=== PATIENT | female | born 1990 | race Caucasian/White ===

== ENCOUNTER 2016-09-02 18:50 | Emergency (ER) | payer MEDICAID ==
[~2016-09-02] VITALS: Ht 160 cm; Wt 76.2 kg
[~2016-09-02 18:50] MED LIST: CEFADROXIL500 MG/51 PO; CEFDINIR250 MG/5 M PO; GOOD NEIGHBOR500 M2 PO; MACROBID100 M1 PO; PRENATAL1 TA1 PO
== END 2016-09-02 19:32 | disposition home or self-care (01) ==
LOC: ED 18:50
DX: F41.9 Anxiety disorder, unspecified (principal)

== ENCOUNTER → 2016-11-13 | Outpatient (CLI) | payer MEDICARE | END | disposition home or self-care (01) | LOC: US 15:30 | DX: Z30.431 Encounter for routine checking of intrauterine contraceptive device (principal); R10.2 Pelvic and perineal pain ==

== ENCOUNTER → 2017-04-07 | Outpatient (CLI) | payer MEDICARE | END | disposition home or self-care (01) | LOC: US 13:19 | DX: O46.91 Antepartum hemorrhage, unspecified, first trimester (principal); O34.81 Maternal care for other abnormalities of pelvic organs, first trimester; N83.11 Corpus luteum cyst of right ovary; Z3A.01 Less than 8 weeks gestation of pregnancy ==

== ENCOUNTER 2017-09-08 16:58 | Emergency (ER) | payer MEDICARE ==
[~2017-09-08] VITALS: Ht 160 cm; Wt 77.1 kg
[2017-09-08] MEDS ORDERED: AMOXICILLIN400 M1 PO (17:22)
== END 2017-09-08 17:40 | disposition home or self-care (01) ==
LOC: ED 16:58
DX: O99.513 Diseases of the respiratory system complicating pregnancy, third trimester (principal); J01.10 Acute frontal sinusitis, unspecified; Z3A.28 28 weeks gestation of pregnancy

== ENCOUNTER 2017-09-14 11:32 | Emergency (ER) | payer MEDICARE ==
[~2017-09-14] VITALS: Ht 160 cm; Wt 80.3 kg
[~2017-09-14 11:32] MED LIST changes: +AMOXICILLIN400 M1 PO
[2017-09-14 12:06] LABS: BASO % 0.2 % (0.0-1.0); EOS # 0.1 10*3/uL (0.0-0.4); EOS % 0.6 % (1.0-4.0); HEMATOCRIT 34.1 % (37.0-47.0); HEMOGLOBIN 11.2 g/dl (12.0-16.0); LYMPH # 1.7 10*3/uL (1.3-4.4); LYMPH % 15.7 % (27.0-41.0); MEAN CELL VOLUME 86.8 fl (81.0-99.0); MEAN CORPUSCULAR HGB 28.5 pg (27.0-31.0); MEAN CORPUSCULAR HGB CONC 32.8 g/dl (33.0-37.0); MONO # 0.4 10*3/uL (0.1-1.0); MONO % 3.5 % (3.0-9.0); NEUT # 8.8 10*3/uL (2.3-7.9); PLATELET COUNT AUTOMATED 277 10*3/uL (130-400); RED BLOOD COUNT 3.93 10*6/uL (4.10-5.10); RED CELL DISTRI WIDTH 13.1 % (0-14.5); WHITE BLOOD COUNT 11.1 10*3/uL (4.8-10.8)
[2017-09-14 12:32] LABS: ALBUMIN 2.6 gm/dl (3.1-4.5); ALKALINE PHOSPHATASE 142 U/L (45-117); BUN 9 mg/dl (7-24); CHLORIDE 107 mmol/L (98-107); CREATININE 0.66 mg/dL (0.55-1.02); LIPASE 190 U/L (73-393); POTASSIUM 4.2 mmol/L (3.5-5.1); SGOT/AST 11 IU/L (3-35); SGPT/ALT 13 U/L (12-78); SODIUM 138 mmol/L (136-145); TOTAL PROTEIN 7.2 gm/dL (6.4-8.2)
[2017-09-14 13:42] LABS: BILIRUBIN NEGATIVE (NEGATIVE); BLOOD NEGATIVE (NEGATIVE); CLARITY CLOUDY (CLEAR); COLOR YELLOW (YELLOW); GLUCOSE NEGATIVE (NEGATIVE); KETONE NEGATIVE (NEGATIVE); LEUKO ESTERASE NEGATIVE (NEGATIVE); NITRITE NEGATIVE (NEGATIVE); PH 6.5 (5.0-9.0); SPECIFIC GRAVITY <= 1.005 (1.005-1.030); UROBILINOGEN 0.2 E.U./dl (0.2-1.0)
[2017-09-14] MEDS ORDERED: DICLEGIS DR 101 EACH PO (13:47)
[2017-09-14 14:23] LABS: BACTERIA TRACE; EPITHELIAL CELLS 16-20
== END 2017-09-14 14:37 | disposition home or self-care (01) ==
LOC: ED 11:32
PROVIDERS: Nurse Practitioner Family
DX: O21.2 Late vomiting of pregnancy (principal); Z3A.29 29 weeks gestation of pregnancy

== ENCOUNTER 2017-12-08 10:35 | Emergency (ER) | payer MEDICARE, OTHER ==
[~2017-12-08] VITALS: Ht 160 cm; Wt 72.6 kg
[~2017-12-08 10:35] MED LIST changes: +DICLEGIS DR 101 EACH PO
[2017-12-08 11:10] LABS: BILIRUBIN NEGATIVE (NEGATIVE); BLOOD 3+ (NEGATIVE); CLARITY SL CLOUDY (CLEAR); COLOR YELLOW (YELLOW); GLUCOSE NEGATIVE (NEGATIVE); KETONE NEGATIVE (NEGATIVE); LEUKO ESTERASE NEGATIVE (NEGATIVE); NITRITE NEGATIVE (NEGATIVE); PH 5.5 (5.0-9.0); UROBILINOGEN 0.2 E.U./dl (0.2-1.0)
[2017-12-08 11:20] LABS: BACTERIA 1+; EPITHELIAL CELLS 30-35; RBC 51-100 rbc/hpf (0-2)
[2017-12-08] MEDS ORDERED: SEPTDS PO (11:24)
== END 2017-12-08 11:28 | disposition home or self-care (01) ==
LOC: ED 10:35
PROVIDERS: Nurse Practitioner Family
DX: O86.29 Other urinary tract infection following delivery (principal); R30.0 Dysuria; Z90.89 Acquired absence of other organs

== ENCOUNTER 2017-12-15 17:20 | Emergency (ER) | payer OTHER ==
[~2017-12-15] VITALS: Ht 160 cm; Wt 72.6 kg
[~2017-12-15 17:20] MED LIST changes: +SEPTDS PO
== END 2017-12-15 17:51 | disposition home or self-care (01) ==
LOC: ED 17:20
DX: S61.211A Laceration without foreign body of left index finger without damage to nail, initial encounter (principal); W45.8XXA Other foreign body or object entering through skin, initial encounter; Y93.89 Activity, other specified; Y92.89 Other specified places as the place of occurrence of the external cause; Y99.8 Other external cause status

== ENCOUNTER 2017-12-28 17:05 | Emergency (ER) | payer OTHER ==
[~2017-12-28] VITALS: Ht 160 cm; Wt 72.6 kg
[2017-12-28] MEDS ORDERED: CLARITIN10 MG PO (17:43)
[2017-12-28] MEDS ORDERED: PREDNISONE10 MG PO (17:43)
[2017-12-28] MEDS ORDERED: FLONASE ALLERG9.9 ML NAS (17:43)
== END 2017-12-28 18:08 | disposition home or self-care (01) ==
LOC: ED 17:05
DX: J02.9 Acute pharyngitis, unspecified (principal); Z90.89 Acquired absence of other organs

== ENCOUNTER 2018-01-23 17:02 | Emergency (ER) | payer OTHER ==
[~2018-01-23] VITALS: Ht 160 cm; Wt 72.6 kg
[~2018-01-23 17:02] MED LIST changes: +CLARITIN10 MG PO; +FLONASE ALLERG9.9 ML NAS; +PREDNISONE10 MG PO
[2018-01-23] MEDS ORDERED: PREDNISONE10 MG PO (17:14)
== END 2018-01-23 18:05 | disposition home or self-care (01) ==
LOC: ED 17:02
DX: M77.8 Other enthesopathies, not elsewhere classified (principal); F41.9 Anxiety disorder, unspecified

== ENCOUNTER 2018-02-12 13:50 | Emergency (ER) | payer OTHER ==
[~2018-02-12] VITALS: Ht 167.6 cm; Wt 81.6 kg
[2018-02-12] MEDS ORDERED: LORAZEPAM0.5 MG PO (13:54)
[2018-02-12] MEDS ORDERED: ESCITALOPRAM OX10 MG PO (13:55)
[2018-02-12 14:17] LABS: BILIRUBIN NEGATIVE (NEGATIVE); BLOOD 3+ (NEGATIVE); CLARITY CLOUDY (CLEAR); COLOR YELLOW (YELLOW); GLUCOSE NEGATIVE (NEGATIVE); KETONE NEGATIVE (NEGATIVE); LEUKO ESTERASE 2+ (NEGATIVE); NITRITE NEGATIVE (NEGATIVE); SPECIFIC GRAVITY 1.025 (1.005-1.030); UROBILINOGEN 0.2 E.U./dl (0.2-1.0)
[2018-02-12 14:26] LABS: RBC TNTC rbc/hpf (0-2)
[2018-02-12] MEDS ORDERED: PYRIDIUM100 MG PO (14:39)
[2018-02-12] MEDS ORDERED: DIFLUCAN150 MG PO (14:39)
[2018-02-12] MEDS ORDERED: MACROBID100 M1 PO (14:39)
== END 2018-02-12 14:44 | disposition home or self-care (01) ==
LOC: ED 13:50
PROVIDERS: Nurse Practitioner
DX: N39.0 Urinary tract infection, site not specified (principal); R31.9 Hematuria, unspecified; Z90.89 Acquired absence of other organs; Z79.899 Other long term (current) drug therapy

== ENCOUNTER 2018-03-10 22:43 | Emergency (ER) | payer OTHER ==
[~2018-03-10] VITALS: Ht 160 cm; Wt 77.1 kg
--- NOTE | ~2018-03-10 | EKG ---
[place], [place] ELECTROCARDIOGRAM REPORT NAME: LAQUITA MARMOLEJO UNIT #: [id number] ROOM: DOCTOR: EPIPHANY DRAFT REPORT BIRTHDATE: [birth year] [facility] Test Date: 2018-03-10 Test Time: 22:52:48 Pat Name: LAQUITA MARMOLEJO Department: ER Room: 9 Gender: F Clinical Reviewer: : 1990 Requested By: OLIMPIA BEAR Order Number: [id number] Reading MD: Shellie Gary MD Measurements Intervals [place] Rate: 80 P: 41 KS: 143 QRS: 25 QRSD: 92 T: 35 QT: 373 QTc: 431 Interpretive Statements Sinus rhythm Electronically Signed On 03-12-2018 11:08:42 PDT by Shellie Gary MD CM:EKGRPT:ELECTROCARDIOGRAM REPORT [id number] OLIMPIA BEAR MD [facility] DRAFT REPORT OLIMPIA BEAR MD
[~2018-03-10 22:43] MED LIST changes: +DIFLUCAN150 MG PO; +ESCITALOPRAM OX10 MG PO; +LORAZEPAM0.5 MG PO; +PYRIDIUM100 MG PO
[2018-03-10 23:22] LABS: BASO % 0.4 % (0.0-1.0); EOS # 0.2 10*3/uL (0.0-0.4); EOS % 2.7 % (1.0-4.0); HEMATOCRIT 35.8 % (37.0-47.0); HEMOGLOBIN 11.7 g/dl (12.0-16.0); LYMPH # 2.8 10*3/uL (1.3-4.4); LYMPH % 33.2 % (27.0-41.0); MEAN CORPUSCULAR HGB 27.8 pg (27.0-31.0); MEAN CORPUSCULAR HGB CONC 32.7 g/dl (33.0-37.0); MONO # 0.3 10*3/uL (0.1-1.0); MONO % 3.9 % (3.0-9.0); NEUT % 59.6 % (47.0-73.0); PLATELET COUNT AUTOMATED 303 10*3/uL (130-400); RED BLOOD COUNT 4.21 10*6/uL (4.10-5.10); RED CELL DISTRI WIDTH 12.6 % (0-14.5); WHITE BLOOD COUNT 8.4 10*3/uL (4.8-10.8)
[2018-03-10 23:35] LABS: ACT PARTIAL THROMBO TIME 25.2 SECONDS (20.8-31.5)
[2018-03-10 23:40] LABS: ALBUMIN 3.7 gm/dl (3.1-4.5); ALKALINE PHOSPHATASE 66 U/L (45-117); BUN 16 mg/dl (7-24); CHLORIDE 109 mmol/L (98-107); CREATININE 0.75 mg/dL (0.55-1.02); POTASSIUM 3.6 mmol/L (3.5-5.1); SGOT/AST 13 IU/L (3-35); SGPT/ALT 27 U/L (12-78); SODIUM 143 mmol/L (136-145); TOTAL PROTEIN 7.3 gm/dL (6.4-8.2)
[2018-03-10 23:42] LABS: TROPONIN I < 0.015 ng/ml (<0.045)
[2018-03-10] MEDS ORDERED: ATIVAN0.5 MG PO (23:49)
[2018-03-10] MEDS ORDERED: ESCITALOPRAM OX20 MG PO (23:49)
== END 2018-03-11 00:25 | disposition home or self-care (01) ==
LOC: ED 22:43
PROVIDERS: Emergency Medicine Emergency Medical Services
DX: R07.89 Other chest pain (principal); F41.1 Generalized anxiety disorder; F43.0 Acute stress reaction; Z79.899 Other long term (current) drug therapy

== ENCOUNTER 2018-09-15 09:18 | Emergency (ER) | payer MEDICARE, OTHER ==
[~2018-09-15] VITALS: Ht 160 cm; Wt 86.2 kg
[~2018-09-15 09:18] MED LIST changes: +ATIVAN0.5 MG PO; +ESCITALOPRAM OX20 MG PO; +LEXAPRO20 MG PO; +PROAIR HFA8.5 GM INH
[2018-09-15] MEDS ORDERED: ZYRTEC10 MG PO (10:03)
[2018-09-15] MEDS ORDERED: FLONASE ALLERG9.9 ML NAS (10:03)
[2018-09-15] MEDS ORDERED: ZITHROMAX250 MG PO (10:03)
== END 2018-09-15 10:23 | disposition home or self-care (01) ==
LOC: ED 09:18
DX: J01.90 Acute sinusitis, unspecified (principal); Z79.899 Other long term (current) drug therapy

== ENCOUNTER → 2019-01-20 | Outpatient (CLI) | payer MEDICARE ==
[~2019-01-20] MED LIST changes: +AUGMENTIN 875875 MG PO; +BUDEPRION XL150 MG PO; +CEPHALEXIN500 M1 PO; +GOOD NEIGHBOR150 MG PO; +PHENERGAN25 M3 PO; +ZITHROMAX250 MG PO; +ZOFRAN4 MG PO; +ZYRTEC10 MG PO
[2019-01-20 11:49] LABS: BASO % 0.5 % (0.0-1.0); EOS # 0.2 10*3/uL (0.0-0.4); EOS % 2.1 % (1.0-4.0); HEMATOCRIT 40.5 % (37.0-47.0); HEMOGLOBIN 13.5 g/dl (12.0-16.0); LYMPH # 2.8 10*3/uL (1.3-4.4); MEAN CELL VOLUME 86.9 fl (81.0-99.0); MEAN CORPUSCULAR HGB CONC 33.3 g/dl (33.0-37.0); MEAN PLATELET VOLUME 10.1 fl (9.6-12.3); MONO # 0.3 10*3/uL (0.1-1.0); MONO % 4.4 % (3.0-9.0); NEUT # 4.4 10*3/uL (2.3-7.9); NEUT % 56.7 % (47.0-73.0); PLATELET COUNT AUTOMATED 286 10*3/uL (130-400); RED BLOOD COUNT 4.66 10*6/uL (4.10-5.10); RED CELL DISTRI WIDTH 12.6 % (0-14.5); WHITE BLOOD COUNT 7.8 10*3/uL (4.8-10.8)
[2019-01-20 12:07] LABS: ALBUMIN 3.7 gm/dl (3.1-4.5); ALKALINE PHOSPHATASE 65 U/L (45-117); BUN 14 mg/dl (7-24); CHLORIDE 107 mmol/L (98-107); CHOLESTEROL 122 mg/dL (<200); CREATININE 0.68 mg/dL (0.55-1.02); HDL CHOLESTEROL 39 mg/dl (40-60); LDL CHOLESTEROL 67 mg/dL (9-159); POTASSIUM 3.9 mmol/L (3.5-5.1); SGOT/AST 39 IU/L (3-35); SGPT/ALT 92 U/L (12-78); SODIUM 140 mmol/L (136-145); TOTAL PROTEIN 7.6 gm/dL (6.4-8.2); TRIGLYCERIDES 80 mg/dl (<150); VLDL CHOLESTEROL 16 mg/dL (6-40)
== END | disposition home or self-care (01) ==
LOC: LAB 11:16
PROVIDERS: Registered Nurse Psychiatric/Mental Health
DX: F33.9 Major depressive disorder, recurrent, unspecified (principal); E55.9 Vitamin D deficiency, unspecified; E66.9 Obesity, unspecified

== ENCOUNTER 2019-02-09 20:50 | Emergency (ER) | payer MEDICARE ==
[~2019-02-09] VITALS: Ht 160 cm; Wt 90.7 kg
[~2019-02-09 20:50] MED LIST changes: -BUDEPRION XL150 MG PO; -GOOD NEIGHBOR150 MG PO; -PHENERGAN25 M3 PO; -ZOFRAN4 MG PO
== END 2019-02-09 23:30 | disposition home or self-care (01) ==
LOC: ED 20:50
DX: M79.671 Pain in right foot (principal)

== ENCOUNTER 2019-02-26 08:55 | Emergency (ER) | payer MEDICARE ==
[~2019-02-26] VITALS: Wt 91.2 kg
[2019-02-26] MEDS ORDERED: ZOFRAN4 MG PO (10:40)
== END 2019-02-26 10:53 | disposition home or self-care (01) ==
LOC: ED 08:55
DX: K52.9 Noninfective gastroenteritis and colitis, unspecified (principal)

== ENCOUNTER 2019-03-05 16:14 | Emergency (ER) | payer MEDICARE ==
[~2019-03-05] VITALS: Ht 160 cm; Wt 93.0 kg
[~2019-03-05 16:14] MED LIST changes: +ZOFRAN4 MG PO
== END 2019-03-05 18:07 | disposition home or self-care (01) ==
LOC: ED 16:14
DX: S80.02XA Contusion of left knee, initial encounter (principal); S80.01XA Contusion of right knee, initial encounter; W18.09XA Striking against other object with subsequent fall, initial encounter; Y93.01 Activity, walking, marching and hiking; Y92.89 Other specified places as the place of occurrence of the external cause; Y99.8 Other external cause status

== ENCOUNTER → 2019-03-26 | Outpatient (CLI) | payer MEDICARE ==
[~2019-03-26] MED LIST changes: +BUDEPRION XL150 MG PO; +GOOD NEIGHBOR150 MG PO; +PHENERGAN25 M3 PO
== END | disposition home or self-care (01) ==
LOC: US 09:58
DX: R94.5 Abnormal results of liver function studies (principal)

== ENCOUNTER 2019-03-30 13:21 | Emergency (ER) | payer MEDICARE ==
[~2019-03-30] VITALS: Ht 160 cm; Wt 90.3 kg
--- NOTE | ~2019-03-30 | EKG ---
[place], [place] ELECTROCARDIOGRAM REPORT NAME: LAQUITA MARMOLEJO UNIT #: [id number] ROOM: DOCTOR: EPIPHANY DRAFT REPORT BIRTHDATE: [birth year] [facility] Test Date: 2019-03-30 Test Time: 13:53:39 Pat Name: LAQUITA MARMOLEJO Department: Room: Gender: F Compounder: Olive Parker : 1990 Requested By: FELIPE MADRID Order Number: [id number] Reading MD: Melodie Arellano MD Measurements Intervals [place] Rate: 97 P: 29 VT: 135 QRS: 21 QRSD: 83 T: 28 QT: 333 QTc: 423 Interpretive Statements Sinus rhythm Baseline wander in lead(s) V4 Compared to ECG 03/10/2018 22:52:48 No significant changes Electronically Signed On 03-30-2019 14:49:51 PDT by Melodie Arellano MD CM:EKGRPT:ELECTROCARDIOGRAM REPORT [id number] FELIPE JACKSON DRAFT REPORT FELIPE MADRID DO
[~2019-03-30 13:21] MED LIST changes: -BUDEPRION XL150 MG PO; -GOOD NEIGHBOR150 MG PO; -PHENERGAN25 M3 PO
[2019-03-30] MEDS ORDERED: BUDEPRION XL150 MG PO (13:23)
[2019-03-30] MEDS ORDERED: GOOD NEIGHBOR150 MG PO (13:23)
[2019-03-30 13:53] LABS: BASO % 0.3 % (0.0-1.0); EOS # 0.2 10*3/uL (0.0-0.4); EOS % 2.2 % (1.0-4.0); LYMPH # 1.2 10*3/uL (1.3-4.4); LYMPH % 13.6 % (27.0-41.0); MEAN CELL VOLUME 86.8 fl (81.0-99.0); MEAN CORPUSCULAR HGB 28.9 pg (27.0-31.0); MEAN CORPUSCULAR HGB CONC 33.3 g/dl (33.0-37.0); MEAN PLATELET VOLUME 9.8 fl (9.6-12.3); MONO # 0.3 10*3/uL (0.1-1.0); MONO % 3.3 % (3.0-9.0); NEUT # 7.1 10*3/uL (2.3-7.9); NEUT % 80.3 % (47.0-73.0); PLATELET COUNT AUTOMATED 277 10*3/uL (130-400); RED BLOOD COUNT 4.84 10*6/uL (4.10-5.10); RED CELL DISTRI WIDTH 12.3 % (0-14.5); WHITE BLOOD COUNT 8.9 10*3/uL (4.8-10.8)
[2019-03-30 14:06] LABS: BILIRUBIN NEGATIVE (NEGATIVE); BLOOD 3+ (NEGATIVE); CLARITY SL CLOUDY (CLEAR); COLOR YELLOW (YELLOW); GLUCOSE NEGATIVE (NEGATIVE); KETONE NEGATIVE (NEGATIVE); LEUKO ESTERASE NEGATIVE (NEGATIVE); NITRITE NEGATIVE (NEGATIVE); SPECIFIC GRAVITY 1.025 (1.005-1.030); UROBILINOGEN 0.2 E.U./dl (0.2-1.0)
[2019-03-30 14:14] LABS: ALBUMIN 3.8 gm/dl (3.1-4.5); ALKALINE PHOSPHATASE 77 U/L (45-117); BUN 10 mg/dl (7-24); CHLORIDE 108 mmol/L (98-107); CREATININE 0.72 mg/dL (0.55-1.02); LIPASE 165 U/L (73-393); POTASSIUM 3.8 mmol/L (3.5-5.1); SGOT/AST 28 IU/L (3-35); SGPT/ALT 71 U/L (12-78); SODIUM 137 mmol/L (136-145); TOTAL PROTEIN 7.9 gm/dL (6.4-8.2)
[2019-03-30 14:15] LABS: BETA-HCG, QUANT < 1.0 mIU/mL (1-3)
[2019-03-30 14:20] LABS: EPITHELIAL CELLS 21-30
[2019-03-30 14:21] LABS: BACTERIA 3+
[2019-03-30] MEDS ORDERED: PHENERGAN25 M3 PO (18:24)
== END 2019-03-30 18:34 | disposition home or self-care (01) ==
LOC: ED 13:21
PROVIDERS: Emergency Medicine
DX: K52.9 Noninfective gastroenteritis and colitis, unspecified (principal); R30.9 Painful micturition, unspecified; R42 Dizziness and giddiness; Z79.899 Other long term (current) drug therapy

== ENCOUNTER 2019-05-06 20:00 | Emergency (ER) | payer MEDICARE ==
[~2019-05-06] VITALS: Ht 160 cm; Wt 89.8 kg
[~2019-05-06 20:00] MED LIST changes: +BUDEPRION XL150 MG PO; +GOOD NEIGHBOR150 MG PO; +PHENERGAN25 M3 PO
[2019-05-06 20:42] LABS: BASO % 0.4 % (0.0-1.0); EOS # 0.2 10*3/uL (0.0-0.4); EOS % 1.9 % (1.0-4.0); HEMATOCRIT 37.5 % (37.0-47.0); HEMOGLOBIN 12.6 g/dl (12.0-16.0); LYMPH # 2.8 10*3/uL (1.3-4.4); LYMPH % 24.8 % (27.0-41.0); MEAN CELL VOLUME 87.2 fl (81.0-99.0); MEAN CORPUSCULAR HGB 29.3 pg (27.0-31.0); MEAN CORPUSCULAR HGB CONC 33.6 g/dl (33.0-37.0); MEAN PLATELET VOLUME 9.8 fl (9.6-12.3); MONO # 0.4 10*3/uL (0.1-1.0); MONO % 3.9 % (3.0-9.0); NEUT # 7.6 10*3/uL (2.3-7.9); NEUT % 68.7 % (47.0-73.0); PLATELET COUNT AUTOMATED 303 10*3/uL (130-400); RED CELL DISTRI WIDTH 12.3 % (0-14.5); WHITE BLOOD COUNT 11.1 10*3/uL (4.8-10.8)
[2019-05-06 21:00] LABS: BUN 13 mg/dl (7-24); CHLORIDE 105 mmol/L (98-107); CREATININE 0.78 mg/dL (0.55-1.02); POTASSIUM 3.6 mmol/L (3.5-5.1); SODIUM 141 mmol/L (136-145)
[2019-05-06] MEDS ORDERED: Accuneb 0.1.25 MG/3 INH (21:32)
[2019-05-06] MEDS ORDERED: TYLENOL325 M1 PO (21:32)
[2019-05-06] MEDS ORDERED: ZITHROMAX250 MG PO (21:32)
== END 2019-05-06 21:35 | disposition home or self-care (01) ==
LOC: ED 20:00
PROVIDERS: Emergency Medicine Emergency Medical Services
DX: J02.0 Streptococcal pharyngitis (principal); M25.561 Pain in right knee; Z79.899 Other long term (current) drug therapy; W19.XXXA Unspecified fall, initial encounter; Y93.89 Activity, other specified; Y92.89 Other specified places as the place of occurrence of the external cause; Y99.8 Other external cause status

== ENCOUNTER 2019-05-20 20:34 | Emergency (ER) | payer MEDICARE ==
[~2019-05-20] VITALS: Ht 160 cm; Wt 89.8 kg
== END 2019-05-20 22:00 | disposition home or self-care (01) ==
LOC: ED 20:34
DX: S80.02XA Contusion of left knee, initial encounter (principal); S80.01XA Contusion of right knee, initial encounter; Z79.899 Other long term (current) drug therapy; W18.39XA Other fall on same level, initial encounter; Y93.89 Activity, other specified; Y92.89 Other specified places as the place of occurrence of the external cause; Y99.8 Other external cause status

== ENCOUNTER → 2019-05-20 | Outpatient (CLI) | payer MEDICARE ==
[~2019-05-20] MED LIST changes: +Accuneb 0.1.25 MG/3 INH; +TYLENOL325 M1 PO
== END | disposition home or self-care (01) ==
LOC: ORTHO 02:46
DX: M25.562 Pain in left knee (principal); M25.561 Pain in right knee; Z91.81 History of falling

== ENCOUNTER 2019-06-01 08:42 | Emergency (ER) | payer MEDICARE ==
[~2019-06-01] VITALS: Ht 160 cm; Wt 89.8 kg
[2019-06-01] MEDS ORDERED: ZITHROMAX250 MG PO (09:21)
== END 2019-06-01 09:46 | disposition home or self-care (01) ==
LOC: ED 08:42
DX: J40 Bronchitis, not specified as acute or chronic (principal); Z79.2 Long term (current) use of antibiotics; Z79.899 Other long term (current) drug therapy

== ENCOUNTER → 2019-06-20 | Outpatient (CLI) | payer MEDICARE | END | disposition home or self-care (01) | LOC: MRI 06-08 14:00 | DX: M17.11 Unilateral primary osteoarthritis, right knee (principal); M25.461 Effusion, right knee; M25.562 Pain in left knee ==

== ENCOUNTER → 2019-09-19 | Outpatient (CLI) | payer MEDICARE ==
[~2019-09-19] MED LIST changes: +AMOXICILLI400 MG/51 PO; +AMOXICILLIN500 M2 PO
[2019-09-19 09:45] LABS: BASO % 0.5 % (0.0-1.0); EOS # 0.2 10*3/uL (0.0-0.4); EOS % 2.5 % (1.0-4.0); HEMOGLOBIN 13.1 g/dl (12.0-16.0); LYMPH # 2.6 10*3/uL (1.3-4.4); LYMPH % 34.8 % (27.0-41.0); MEAN CORPUSCULAR HGB 28.2 pg (27.0-31.0); MEAN CORPUSCULAR HGB CONC 32.8 g/dl (33.0-37.0); MEAN PLATELET VOLUME 9.8 fl (9.6-12.3); MONO # 0.3 10*3/uL (0.1-1.0); MONO % 4.1 % (3.0-9.0); NEUT # 4.3 10*3/uL (2.3-7.9); NEUT % 57.8 % (47.0-73.0); PLATELET COUNT AUTOMATED 309 10*3/uL (130-400); RED BLOOD COUNT 4.65 10*6/uL (4.10-5.10); RED CELL DISTRI WIDTH 12.3 % (0-14.5); WHITE BLOOD COUNT 7.5 10*3/uL (4.8-10.8)
[2019-09-19 10:15] LABS: CHLORIDE 109 mmol/L (98-107); POTASSIUM 4.2 mmol/L (3.5-5.1); SODIUM 139 mmol/L (136-145)
[2019-09-19 10:30] LABS: ALBUMIN 3.9 gm/dl (3.1-4.5); ALKALINE PHOSPHATASE 69 U/L (45-117); BUN 13 mg/dl (7-24); CHOLESTEROL 135 mg/dL (<200); CREATININE 0.68 mg/dL (0.55-1.02); HDL CHOLESTEROL 35 mg/dl (40-60); LDL CHOLESTEROL 80 mg/dL (9-159); SGOT/AST 32 IU/L (3-35); SGPT/ALT 73 U/L (12-78); TOTAL PROTEIN 7.5 gm/dL (6.4-8.2); TRIGLYCERIDES 99 mg/dl (<150); VLDL CHOLESTEROL 20 mg/dL (6-40)
== END ==
LOC: LAB 09:07
PROVIDERS: Nurse Practitioner Family
DX: K76.0 Fatty (change of) liver, not elsewhere classified (principal); E55.9 Vitamin D deficiency, unspecified; E66.9 Obesity, unspecified; R94.5 Abnormal results of liver function studies; R53.83 Other fatigue

== ENCOUNTER 2019-10-02 22:42 | Emergency (ER) | payer MEDICARE ==
[~2019-10-02] VITALS: Ht 160 cm; Wt 89.8 kg
[~2019-10-02 22:42] MED LIST changes: -AMOXICILLI400 MG/51 PO; -AMOXICILLIN500 M2 PO
[2019-10-02] MEDS ORDERED: AMOXICILLIN500 M2 PO (23:56)
[2019-10-03] MEDS ORDERED: AMOXICILLI400 MG/51 PO (00:16)
== END 2019-10-03 04:32 | disposition home or self-care (01) ==
LOC: ED 22:42
DX: J02.9 Acute pharyngitis, unspecified (principal); R11.0 Nausea; R51 Headache; Z79.2 Long term (current) use of antibiotics; Z79.899 Other long term (current) drug therapy

== ENCOUNTER 2019-10-25 23:43 | Emergency (ER) | payer OTHER ==
[~2019-10-25] VITALS: Ht 160 cm; Wt 93.0 kg
[~2019-10-25 23:43] MED LIST changes: +AMOXICILLI400 MG/51 PO; +AMOXICILLIN500 M2 PO
== END 2019-10-26 00:46 | disposition home or self-care (01) ==
LOC: ED 23:43
DX: B34.9 Viral infection, unspecified (principal); Z79.899 Other long term (current) drug therapy

== ENCOUNTER 2019-10-28 11:18 | Emergency (ER) | payer OTHER ==
[2019-10-28 11:48] LABS: BASO % 0.3 % (0.0-1.0); EOS # 0.3 10*3/uL (0.0-0.4); EOS % 3.3 % (1.0-4.0); HEMATOCRIT 39.8 % (37.0-47.0); HEMOGLOBIN 13.2 g/dl (12.0-16.0); LYMPH # 2.4 10*3/uL (1.3-4.4); LYMPH % 25.3 % (27.0-41.0); MEAN CELL VOLUME 85.4 fl (81.0-99.0); MEAN CORPUSCULAR HGB 28.3 pg (27.0-31.0); MEAN CORPUSCULAR HGB CONC 33.2 g/dl (33.0-37.0); MEAN PLATELET VOLUME 9.4 fl (9.6-12.3); MONO # 0.5 10*3/uL (0.1-1.0); NEUT # 6.1 10*3/uL (2.3-7.9); NEUT % 65.9 % (47.0-73.0); PLATELET COUNT AUTOMATED 329 10*3/uL (130-400); RED BLOOD COUNT 4.66 10*6/uL (4.10-5.10); RED CELL DISTRI WIDTH 12.4 % (0-14.5); WHITE BLOOD COUNT 9.3 10*3/uL (4.8-10.8)
[2019-10-28 12:04] LABS: ALBUMIN 3.8 gm/dl (3.1-4.5); ALKALINE PHOSPHATASE 77 U/L (45-117); BUN 12 mg/dl (7-24); CHLORIDE 110 mmol/L (98-107); CREATININE 0.58 mg/dL (0.55-1.02); POTASSIUM 3.7 mmol/L (3.5-5.1); SGOT/AST 28 IU/L (3-35); SGPT/ALT 63 U/L (12-78); SODIUM 140 mmol/L (136-145); TOTAL PROTEIN 7.8 gm/dL (6.4-8.2)
[2019-10-28] MEDS ORDERED: FLONASE ALLERG9.9 ML NAS (12:58)
[2019-10-28] MEDS ORDERED: CLARITIN10 MG PO (12:58)
[2019-10-28] MEDS ORDERED: ROBITUSSIN DM 101 OZ PO (12:58)
== END 2019-10-28 13:00 | disposition home or self-care (01) ==
LOC: ED 11:18
PROVIDERS: Nurse Practitioner Family
DX: J06.9 Acute upper respiratory infection, unspecified (principal); F41.9 Anxiety disorder, unspecified; F32.9 Major depressive disorder, single episode, unspecified; Z79.2 Long term (current) use of antibiotics; Z79.899 Other long term (current) drug therapy

== ENCOUNTER → 2020-01-18 | Outpatient (CLI) | payer OTHER ==
[~2020-01-18] MED LIST changes: +ROBITUSSIN DM 101 OZ PO
== END | disposition home or self-care (01) ==
LOC: RAD 13:21
DX: M99.03 Segmental and somatic dysfunction of lumbar region (principal)

== ENCOUNTER 2020-02-23 11:47 | Emergency (ER) | payer OTHER ==
[~2020-02-23] VITALS: Ht 160 cm; Wt 94.3 kg
[2020-02-23 12:50] LABS: BILIRUBIN NEGATIVE (NEGATIVE); BLOOD NEGATIVE (NEGATIVE); CLARITY SL CLOUDY (CLEAR); COLOR YELLOW (YELLOW); GLUCOSE NEGATIVE (NEGATIVE); KETONE NEGATIVE (NEGATIVE); LEUKO ESTERASE 1+ (NEGATIVE); NITRITE NEGATIVE (NEGATIVE); SPECIFIC GRAVITY 1.025 (1.005-1.030); UROBILINOGEN 0.2 E.U./dl (0.2-1.0)
[2020-02-23 13:00] LABS: BACTERIA 3+; EPITHELIAL CELLS 16-20; MUCOUS 1+
== END 2020-02-23 13:16 | disposition home or self-care (01) ==
LOC: ED 11:47
PROVIDERS: Student in an Organized Health Care Education/Training Program
DX: R11.0 Nausea (principal); Z32.02 Encounter for pregnancy test, result negative; Z79.899 Other long term (current) drug therapy

== ENCOUNTER → 2020-03-02 | Outpatient (CLI) | payer OTHER | END | disposition home or self-care (01) | LOC: US 13:30 | DX: N91.1 Secondary amenorrhea (principal) ==

== ENCOUNTER 2020-05-29 18:25 | Emergency (ER) | payer OTHER ==
[~2020-05-29] VITALS: Wt 85.3 kg
[2020-05-29 19:13] LABS: BILIRUBIN Negative (Negative); BLOOD Negative (Negative); CLARITY Cloudy (Clear); COLOR Yellow (Yellow); GLUCOSE Negative (Negative); KETONE Negative (Negative); LEUKO ESTERASE Trace (Negative); NITRITE Negative (Negative); PH 6.5 (4.5-8.0); SPECIFIC GRAVITY 1.025 (1.001-1.030)
[2020-05-29 19:27] LABS: BACTERIA 1+
[2020-05-29] MEDS ORDERED: Bactrim 200 MG/30 ML PO (19:31)
== END 2020-05-29 19:41 | disposition home or self-care (01) ==
LOC: ED 18:25
PROVIDERS: Emergency Medicine
DX: N39.0 Urinary tract infection, site not specified (principal); F41.9 Anxiety disorder, unspecified; F32.9 Major depressive disorder, single episode, unspecified; Z79.899 Other long term (current) drug therapy

== ENCOUNTER → 2020-07-10 | Outpatient (CLI) | payer OTHER ==
[~2020-07-10] MED LIST changes: +ASPIRIN ADULT L81 M1 PO; +Bactrim 200 MG/30 ML PO; +Lovenox40 MG/0.4 PO; +VITAMIN B-625 M1 PO
== END | disposition home or self-care (01) ==
LOC: US 11:34
PROVIDERS: ATTEND Nurse Practitioner Women's Health
DX: Z34.81 Encounter for supervision of other normal pregnancy, first trimester (principal); Z3A.01 Less than 8 weeks gestation of pregnancy

== ENCOUNTER → 2020-07-20 | Outpatient (CLI) | payer OTHER | END | disposition home or self-care (01) | LOC: US 14:48 | PROVIDERS: ATTEND Nurse Practitioner Women's Health | DX: Z34.81 Encounter for supervision of other normal pregnancy, first trimester (principal); Z3A.01 Less than 8 weeks gestation of pregnancy ==

== ENCOUNTER → 2020-07-27 | Outpatient (CLI) | payer OTHER | END | disposition home or self-care (01) | LOC: US 12:00 | PROVIDERS: ATTEND Nurse Practitioner Women's Health | DX: O34.81 Maternal care for other abnormalities of pelvic organs, first trimester (principal); N83.11 Corpus luteum cyst of right ovary; Z3A.01 Less than 8 weeks gestation of pregnancy ==

== ENCOUNTER 2020-09-04 09:28 | Emergency (ER) | payer OTHER ==
[~2020-09-04] VITALS: Ht 160 cm; Wt 83.9 kg
[~2020-09-04 09:28] MED LIST changes: -ASPIRIN ADULT L81 M1 PO; -Lovenox40 MG/0.4 PO; -VITAMIN B-625 M1 PO
[2020-09-04] MEDS ORDERED: ASPIRIN ADULT L81 M1 PO (09:33)
[2020-09-04] MEDS ORDERED: Lovenox40 MG/0.4 PO (09:34)
[2020-09-04] MEDS ORDERED: VITAMIN B-625 M1 PO (09:35)
[2020-09-04 10:19] LABS: BILIRUBIN Negative (Negative); BLOOD 2+ (Negative); CLARITY Cloudy (Clear); COLOR Yellow (Yellow); GLUCOSE Negative (Negative); KETONE Negative (Negative); LEUKO ESTERASE 2+ (Negative); NITRITE Negative (Negative); PH 5.5 (4.5-8.0); SPECIFIC GRAVITY 1.025 (1.001-1.030)
[2020-09-04 10:35] LABS: EPITHELIAL CELLS 16-20; MUCOUS TRACE; RBC 0-2 rbc/hpf (0-2)
[2020-09-04] MEDS ORDERED: CEPHALEXIN500 M1 PO (10:59)
== END 2020-09-04 11:04 | disposition home or self-care (01) ==
LOC: ED 09:28
PROVIDERS: Registered Nurse
DX: O23.91 Unspecified genitourinary tract infection in pregnancy, first trimester (principal); Z3A.13 13 weeks gestation of pregnancy

== ENCOUNTER 2020-09-06 00:57 | Emergency (ER) | payer OTHER ==
[~2020-09-06] VITALS: Ht 160 cm; Wt 85.3 kg
[2020-09-06 01:41] LABS: BASO % 0.4 % (0.0-1.0); EOS # 0.1 10*3/uL (0.0-0.4); EOS % 1.7 % (1.0-4.0); HEMATOCRIT 32.1 % (37.0-47.0); LYMPH # 2.4 10*3/uL (1.3-4.4); MEAN CELL VOLUME 85.8 fl (81.0-99.0); MEAN CORPUSCULAR HGB 28.6 pg (27.0-31.0); MEAN CORPUSCULAR HGB CONC 33.3 g/dl (33.0-37.0); MONO # 0.3 10*3/uL (0.1-1.0); MONO % 3.9 % (3.0-9.0); NEUT # 5.3 10*3/uL (2.3-7.9); NEUT % 64.6 % (47.0-73.0); PLATELET COUNT AUTOMATED 245 10*3/uL (130-400); RED BLOOD COUNT 3.74 10*6/uL (4.10-5.10); RED CELL DISTRI WIDTH 13.1 % (0-14.5); WHITE BLOOD COUNT 8.2 10*3/uL (4.8-10.8)
[2020-09-06 03:39] LABS: BILIRUBIN Negative (Negative); BLOOD 3+ (Negative); CLARITY Clear (Clear); COLOR Yellow (Yellow); GLUCOSE Negative (Negative); KETONE Negative (Negative); LEUKO ESTERASE Trace (Negative); NITRITE Negative (Negative); PH 6.5 (4.5-8.0)
[2020-09-06 03:50] LABS: RBC 16-20 rbc/hpf (0-2)
== END 2020-09-06 04:23 | disposition home or self-care (01) ==
LOC: ED 00:57
PROVIDERS: Emergency Medicine
DX: O46.91 Antepartum hemorrhage, unspecified, first trimester (principal); Z3A.14 14 weeks gestation of pregnancy; Z79.899 Other long term (current) drug therapy; Z79.82 Long term (current) use of aspirin

== ENCOUNTER → 2020-09-06 | Outpatient (CLI) | payer OTHER ==
[~2020-09-06] MED LIST changes: +ASPIRIN ADULT L81 M1 PO; +Lovenox40 MG/0.4 PO; +VITAMIN B-625 M1 PO
== END | disposition home or self-care (01) ==
LOC: US 14:10
PROVIDERS: ATTEND Nurse Practitioner Women's Health
DX: O44.41 Low lying placenta NOS or without hemorrhage, first trimester (principal); Z3A.13 13 weeks gestation of pregnancy